=== PATIENT | male | born 1945 | race Caucasian/White ===

== ENCOUNTER 2018-07-30 12:05 | Emergency (ER) | payer MEDICARE, SELFPAY ==
[2018-07-30 12:19] VITALS: BP 134/103; PULSE 63; RESP 20; TEMP 36.6; O2SAT 98
--- NOTE | 2018-07-30 12:30 | PC.NURSE ---
pt c/o bilateral lower arm bug bites did not witness the bites but occured while on a cruise ship. pt has 5 red spots to right arm and 4 to left arm. left hand 2nd finger area is swelling, and tight. pt c/o severe itching.
--- NOTE | 2018-07-30 12:49 | ED_ITS ---
HPI - Skin/Abscess/Foreign Bdy <Mariza Barragan PA-C - Last Filed: 07/30/18 14:00> General Chief complaint: Skin/Abscess/Foreign Body Stated complaint: multiple bug bites on both arms Time Seen by Provider: 07/30/18 12:10 Source: patient and family Mode of arrival: ambulatory Limitations: no limitations History of Present Illness HPI narrative: This 72-year-old male comes in due to concern for skin infection under a to insect bites. He states that he has been on a cruise ship, and on Friday after he sat in a chair wearing his underwear and a sure, he started to have itching and noticed the bites. He does not think they came from anywhere else as his has been traveling with him and same exposures except for sitting in this chair. He did not see any insects or feel any bites at the time. He states that he has had itchy red spots mainly on his arms, 1 on his back on the right side, none on the front of his body, face, or neck. His is a nurse, has been taking Benadryl as needed as well as using topical Benadryl, tried hydrocortisone cream and also liquid Band-Aid to keep him from scratching. Today, left pointer finger has been swollen and the bite seems more red than the other spots. He denies any difficulty using the finger though it is a little bit tight due to the swelling. He denies any pain from the bites or finger. He denies any fever, chills, sweats. He denies any difficulty swallowing or facial swelling, wheeze or dyspnea or other new complaints on systems review Related Data Previous Rx's Medication Instructions Recorded cephalexin [Keflex] 500 mg PO Q6H 7 Days #28 cap 07/30/18 triamcinolone acetonide 1 applictn TOP TID #30 gram 07/30/18 Allergies Allergy/AdvReac Type Severity Reaction Status Date / Time No Known Drug Allergies Allergy Verified 07/30/18 12:16 Review of Systems <Mariza Barragan PA-C - Last Filed: 07/30/18 14:00> Review of Systems ROS Unobtainable: All systems reviewed & are unremarkable except as noted in HPI and below PFSH <Mariza Barragan PA-C - Last Filed: 07/30/18 14:00> Medical History (Updated 07/30/18 @ 12:46 by Mariza Barragan PA-C) Insulin dependent diabetes mellitus (Chronic) Osteoarthritis of knees, bilateral (Chronic) Surgical History (Updated 07/30/18 @ 12:46 by Mariza Barragan PA-C) Status post total knee replacement, bilateral (Resolved) Social History Smoking Status: Former smoker Social History Smoking Status: Former smoker Exam <Mariza Barragan PA-C - Last Filed: 07/30/18 14:00> Narrative Exam Narrative: GENERAL APPEARANCE: Patient sitting comfortably, in no distress. HEENT: EOMI, no perioral or facial edema NECK: Supple LUNGS: Clear to auscultation bilaterally. HEART: Rate and rhythm regular without murmur, normal S1 and S2, no S3 or S4. DERMATOLOGIC: Scattered single pink papules on the upper extremity, mainly on the dorsal surfaces, occasional dry erythematous patch as well including 1 on the right flank. On the left pointer finger dorsum lateral side proximal to the PIP there is a 9 mm erythematous papule, mild surrounding erythema and effusion. No streaking or warmth. No vesicular lesions or pustules MUSCULOSKELETAL: Left pointer finger full range of motion, strength intact in all mcdonald against resistance, no tenderness NEUROVASCULAR: Left upper extremity sensation grossly intact, fingers are warm and pink with brisk cap refill Initial Vital Signs Initial Vital Signs: Vital Signs Temperature 97.9 F 07/30/18 12:19 Pulse Rate 63 07/30/18 12:19 Respiratory Rate 20 07/30/18 12:19 Blood Pressure 134/103 H 07/30/18 12:19 Pulse Oximetry 98 07/30/18 12:19 <Sharmila Carreon DO - Last Filed: 08/01/18 08:43> Initial Vital Signs Initial Vital Signs: Vital Signs Temperature 97.9 F 07/30/18 12:19 Pulse Rate 63 07/30/18 12:19 Respiratory Rate 20 07/30/18 12:19 Blood Pressure 134/103 H 07/30/18 12:19 Pulse Oximetry 98 07/30/18 12:19 Course <Mariza Barragan PA-C - Last Filed: 07/30/18 14:00> Vital Signs - 8 hr 07/30/18 12:19 Temperature 97.9 F Pulse Rate 63 Respiratory Rate 20 Blood Pressure 134/103 H Pulse Oximetry 98 <Sharmila Carreon DO - Last Filed: 08/01/18 08:43> Vital Signs - 8 hr 07/30/18 12:19 Temperature 97.9 F Pulse Rate 63 Respiratory Rate 20 Blood Pressure 134/103 H Pulse Oximetry 98 Discharge Plan Departure Patient Disposition: Home Clinical Impression: Insect bites Qualifiers: Encounter type: initial encounter Site of insect bite: unspecified site Qualified Code(s): W57.XXXA - Bitten or stung by nonvenomous insect and other nonvenomous arthropods, initial encounter Cellulitis Qualifiers: Site of cellulitis: extremity Site of cellulitis of extremity: finger Laterality: left Qualified Code(s): L03.012 - Cellulitis of left finger Discharge Date/Time: 07/30/18 12:55 Interventions: ED Discharge Assessment Last Done: 07/30/18 12:55 Instructions: DI for Cellulitis -- Adult, DI for Insect Bites and Stings Activity Restrictions/Additional Instructions: Please return as we talked about if you have any acutely worsening redness, swelling, or new symptoms such as fever, pain in your joint, facial swelling or difficulty breathing. Otherwise, please sheepskin pickler the antibiotic when you leave here and started right away. At this point it is not clear whether you have an infection of the bite on your finger hurts versus a more severe histamine reaction to with you were exposed to. I have prescribed a topical steroid to help with inflammation and itching. You can also continue Benadryl as needed. Remember to apply an ice pack for itching instead of scratching the area. Please follow-up with your PCP when you get home if this is not starting to get better in a few days I have sent your prescriptions to [facility] Prescriptions: New triamcinolone acetonide 0.1 % ointment 1 applictn TOP TID Qty: 30 RF: 0 cephalexin [Keflex] 500 mg capsule 500 mg PO Q6H 7 Days Qty: 28 RF: 0 Referrals: Lorenza Zhu MD [Other] <Sharmila Carreon DO - Last Filed: 08/01/18 08:43> Cosign ED Attending Cosignature Attestation: I was immediately available in the department for consultation. Documentation has been reviewed. I agree with assessment and plan.
== END 2018-07-30 12:55 | disposition home or self-care (01) ==
PROVIDERS: Emergency Provider Internal Medicine
DX: L03.012 Cellulitis of left finger (principal); S40.861A Insect bite (nonvenomous) of right upper arm, initial encounter; S40.862A Insect bite (nonvenomous) of left upper arm, initial encounter; W57.XXXA Bitten or stung by nonvenomous insect and other nonvenomous arthropods, initial encounter
CPT/HCPCS: 99282; 99283